=== PATIENT | female | born 1940 | race Caucasian/White ===

== ENCOUNTER 2021-10-15 18:16 | Observation (INO) | payer MEDICARE, OTHER, SELFPAY ==
[2021-10-15 18:32] VITALS: BP 181/95; PULSE 118; RESP 24; TEMP 37.1; O2SAT 98; BMI 27.4
--- NOTE | 2021-10-15 18:42 | DI.RAD.S_ITS ---
PROCEDURE: XR CHEST 2V INDICATIONS: shortness of breath TECHNIQUE: 2 views of the chest were acquired. COMPARISON: [facility] ([place]), CR, XR CHEST 2V, 10/15/2021, 13:40. FINDINGS: Surgical changes and devices: None. Lungs and pleura: Small left greater than right bilateral pleural effusion are again seen with bibasilar atelectasis. Underlying small infiltrates cannot be excluded. No gross pneumothorax. Mediastinum: Mediastinal contours are normal. Heart size is normal. Bones and chest wall: No suspicious bony abnormalities. Soft tissues appear unremarkable. IMPRESSION: Persistent small left greater than right bilateral pleural effusion and bibasilar atelectasis. No gross pneumothorax. Finding is not significantly changed from earlier study. Dictated by: Leonides Ulloa M.D. on 10/15/2021 at 19:01 Approved by: Leonides Ulloa M.D. on 10/15/2021 at 19:01
--- NOTE | 2021-10-15 19:17 | ED.SOB ---
HPI - SOB/Dyspnea General Chief Complaint: Shortness of Breath/Dyspnea Stated Complaint: states sent by MD lungs filing w/fluid Time Seen by Provider: 10/15/21 18:37 History of Present Illness HPI Narrative: 81-year-old female nonsmoker with history of chronic AFib on anticoagulation presents with her and the request of her primary care provider for further evaluation. She had noted that she had been wheezing for the past few days and become increasingly short of breath but was not improving with her inhalers and went to see her primary care provider. On their exam they noticed some increased work of breathing, elevated heart rate in the 140s, as well as a CXR that notes a R sided pleural effusion and she was sent here for further evaluation. She states she is chronically in atrial fibrillation and is unclear what her heart rate normally is. She denies any change in her medications, dosages or pharmacy. She denies missing any medications. She has no chest pain and denies any fever or chills. She has had no nausea or vomiting. Related Data Home Medications Medication Instructions Recorded Confirmed apixaban 5 mg tablet (Eliquis) 5 mg PO BID 10/13/21 10/15/21 hydrochlorothiazide 25 mg tablet 25 mg PO DAILY 10/13/21 10/15/21 metoprolol succinate 100 mg 100 mg PO DAILY 10/13/21 10/15/21 tablet,extended release 24 hr rosuvastatin 5 mg tablet 5 mg PO BID tab 10/15/21 10/15/21 Previous Rx's Medication Instructions Recorded albuterol sulfate 90 mcg/actuation See Rx Instructions INHALATION 10/13/21 aerosol inhaler Q4-6H PRN #8.5 g Allergies Allergy/AdvReac Type Severity Reaction Status Date / Time No Known Drug Allergies Allergy Verified 10/13/21 15:44 Review of Systems Review of Systems Narrative: GENERAL: Denies chills, fatigue, malaise, fever, sweats. HEENT: Denies sinus pain, ear pain, sore throat, difficulty swallowing, dizziness. RESPIRATORY: See HPI CARDIOVASCULAR: Denies chest pain, palpitations, orthopnea, edema, GASTROINTESTINAL: Denies nausea, vomiting, abdominal pain, diarrhea, constipation, melena. : Denies dysuria, frequency, incontinence, hematuria, urinary retention. MUSCULOSKELETAL: denies weakness, joint pain, or bony pain SKIN: Denies rash, skin lesions, or other NEUROLOGIC: Denies weakness, headache, numbness, change in speech, confusion, seizures, incoordination. PSYCHIATRIC: No concerning psychosocial issues. 12 point review of systems is negative except for those stated above Patient History Medical History Chronic atrial fibrillation Hypertension Pleural effusion Social History household members: spouse Smoking Status: Never smoker alcohol intake: current Smoking Status: Never smoker alcohol intake frequency: holidays/special occasions only Substance Use Type: does not use Exam Narrative Exam Narrative: GENERAL: [81 year old patient appears stated age. Well-developed patient, in mild distress. Minimal exertion results in obvious dyspnea and increased work of breathing, though she has not hypoxic at rest HEAD: Atraumatic. Normocephalic. EYES: Pupils equal round and reactive. Extraocular motions intact. No scleral icterus. No injection or drainage. ENT: Nose without bleeding, purulent drainage. Throat without erythema, tonsillar hypertrophy or exudate. Airway patent. NECK: Trachea midline. Non tender CARDIOVASCULAR: Tachycardic and irregular rhythm without murmurs, gallops, or rubs. RESPIRATORY: Increased work of breathing with minimal exertion, decreased breath sounds in left base with crackles in right base GASTROINTESTINAL: Abdomen soft, non-tender, nondistended. EXTREMITIES: No edema or joint tenderness. BACK: Nontender without deformity or crepitance. No flank tenderness. NEURO: AOx3. SKIN: No rash or erythema of visible areas Initial Vital Signs Initial Vital Signs: Vital Signs Temperature 98.7 F 10/15/21 18:32 Pulse Rate 118 H 10/15/21 18:32 Respiratory Rate 24 10/15/21 18:32 Blood Pressure 181/95 H 10/15/21 18:32 Pulse Oximetry 98 10/15/21 18:32 Course Orders Ordered: ED Orders 10/15/21 18:42 XR chest 2V Stat Measure peak expiratory flow ONCE RT Consult Eval and Treat Now 10/15/21 19:20 Complete Blood Count AUTO DIFF Stat Comprehensive Metabolic Panel Stat Lactate (Lactic Acid) Stat NT-proBNP (BNP-Adult 18+) Stat Prothrombin Time INR Stat 10/15/21 19:35 Respiratory Panel (Film Array) Stat 10/15/21 20:16 EKG-12 Lead Stat Acetaminophen (Acetaminophen 325 Mg Tablet) 650 mg PO Q6HR PRN PRN Reason: Fever/Mild Pain (1-3) Apixaban (Apixaban 5 Mg Tablet) 5 mg PO BID [facility] Last Admin: 10/15/21 22:33 Dose: 5 mg Documented by: HARLAN Atorvastatin Calcium (Atorvastatin 20 Mg Tablet) 10 mg PO BEDTIME [facility] Last Admin: 10/15/21 22:32 Dose: 10 mg Documented by: HARLAN Metoprolol Succinate (Metoprolol Er 50 Mg Tablet) 100 mg PO DAILY [facility] Naloxone HCl (Naloxone 0.4 Mg/Ml Vial) 0.2 mg IV Q2MIN PRN PRN Reason: Opiate Reversal Ondansetron HCl (Ondansetron 4 Mg/2 Ml Inj) 4 mg IV Q8HR PRN PRN Reason: Nausea And Vomiting Sodium Chloride (Sodium Chloride 0.9% Flush) 10 ml IV PRN PRN PRN Reason: Flush Sodium Chloride (Sodium Chloride 0.9% Flush) 10 ml IV BID [facility] Discontinued Medications Furosemide (Furosemide 40 Mg/4 Ml Vial) 40 mg IV NOW ONE Stop: 10/15/21 19:56 Last Admin: 10/15/21 20:41 Dose: 40 mg Documented by: DARRON Metoprolol Tartrate (Metoprolol Ir 25 Mg Tablet) 50 mg PO NOW ONE Stop: 10/15/21 19:47 Last Admin: 10/15/21 19:59 Dose: 50 mg Documented by: DARRON Vital Signs Vital signs: Vital Signs - 8 hr 10/15/21 18:32 Temperature 98.7 F Pulse Rate 118 H Respiratory Rate 24 Blood Pressure 181/95 H Pulse Oximetry 98 MDM - SOB/Dyspnea Lab Data Result diagrams: 10/15/21 19:20 10/15/21 19:20 Labs: Lab Results 10/15/21 10/15/21 10/15/21 Range/Units 19:20 19:20 19:20 WBC 8.1 (4.5-11.0) X10^3/uL RBC 3.56 L (4.0-5.2) X10^6/uL Hgb 12.0 (12.0-16.0) g/dL Hct 35.8 L (36-46) % MCV 100.7 H (80-100) fL MCH 33.7 (26-34) PG MCHC 33.5 (30-36) % RDW 14.4 (11.6-14.8) % Plt Count 222 (150-400) X10^3/uL Neut % (Auto) 84.5 H (50-75) % Lymph % (Auto) 6.5 L (25-40) % [place] % (Auto) 8.2 (3-14) % Eos % (Auto) 0.2 L (2-4) % Baso % (Auto) 0.6 (0-2) % Neut # (Auto) 6900 (5828-6253) /uL Lymph # (Auto) 500 L (8172-4954) /uL [place] # (Auto) 700 (0-900) /uL Eos # (Auto) 0 (0-450) /uL Baso # (Auto) 0 (0-100) /uL PT 19.0 H (10.1-12.7) SECONDS INR 1.7 H (0.9-1.3) Sodium 141 (137-145) mmol/L Potassium 3.7 (3.4-5.1) mmol/L Chloride 104 (98-107) mmol/L Carbon Dioxide 27 (22-32) mmol/L BUN 20 H (7-17) mg/dL Creatinine 1.01 (0.52-1.04) mg/dL Estimated GFR 52.3 L (>60) mL/min BUN/Creatinine Ratio 19.8 (6-22) Glucose 117 H (80-110) mg/dL Lactate (0.7-2.1) mmol/L Calcium 9.8 (8.4-10.2) mg/dL Total Bilirubin 1.8 H (0.2-1.3) mg/dL AST 30 (14-36) IU/L ALT 22 (<35) IU/L Alkaline Phosphatase 80 (38-126) U/L NT-Pro-B Natriuret Pep 2390 H (<450) pg/mL Total Protein 8.0 (6.3-8.2) g/dL Albumin 4.9 (3.5-5.0) g/dL Globulin 3.1 (1.7-4.1) g/dL Albumin/Globulin Ratio 1.6 (1.0-2.8) Procalcitonin (<0.5) ng/mL Chlamy pneumoniae PCR (Not Detect) Adenovirus (PCR) (Not Detect) B. pertussis DNA (PCR) (Not Detecte) B.parapertussis DNA PCR (Not Detecte) Coronavirus OC43 (PCR) (Not Detect) Coronavirus HKU1 (PCR) (Not Detect) Coronavirus 229E (PCR) (Not Detect) SARS-CoV-2 (PCR) (Not Detecte) Coronavirus NL63 (PCR) (Not Detect) Human Metapneumovir PCR (Not Detect) Influenza Type A (PCR) (Not Detect) Influenza Type B (PCR) (Not Detect) M. pneumoniae (PCR) (Not Detect) Parainfluenza 1 (PCR) (Not Detect) Parainfluenza 2 (PCR) (Not Detect) Parainfluenza 3 (PCR) (Not Detect) Parainfluenza 4 (PCR) (Not Detect) RSV (PCR) (Not Detect) Entero/Rhino (PCR) (Not Detect) 10/15/21 10/15/21 10/15/21 Range/Units 19:20 19:20 19:35 WBC (4.5-11.0) X10^3/uL RBC (4.0-5.2) X10^6/uL Hgb (12.0-16.0) g/dL Hct (36-46) % MCV (80-100) fL MCH (26-34) PG MCHC (30-36) % RDW (11.6-14.8) % Plt Count (150-400) X10^3/uL Neut % (Auto) (50-75) % Lymph % (Auto) (25-40) % [place] % (Auto) (3-14) % Eos % (Auto) (2-4) % Baso % (Auto) (0-2) % Neut # (Auto) (6933-7430) /uL Lymph # (Auto) (9615-2598) /uL [place] # (Auto) (0-900) /uL Eos # (Auto) (0-450) /uL Baso # (Auto) (0-100) /uL PT (10.1-12.7) SECONDS INR (0.9-1.3) Sodium (137-145) mmol/L Potassium (3.4-5.1) mmol/L Chloride (98-107) mmol/L Carbon Dioxide (22-32) mmol/L BUN (7-17) mg/dL Creatinine (0.52-1.04) mg/dL Estimated GFR (>60) mL/min BUN/Creatinine Ratio (6-22) Glucose (80-110) mg/dL Lactate 1.7 (0.7-2.1) mmol/L Calcium (8.4-10.2) mg/dL Total Bilirubin (0.2-1.3) mg/dL AST (14-36) IU/L ALT (<35) IU/L Alkaline Phosphatase (38-126) U/L NT-Pro-B Natriuret Pep (<450) pg/mL Total Protein (6.3-8.2) g/dL Albumin (3.5-5.0) g/dL Globulin (1.7-4.1) g/dL Albumin/Globulin Ratio (1.0-2.8) Procalcitonin 0.07 (<0.5) ng/mL Chlamy pneumoniae PCR Not detected (Not Detect) Adenovirus (PCR) Not detected (Not Detect) B. pertussis DNA (PCR) Not detected (Not Detecte) B.parapertussis DNA PCR Not detected (Not Detecte) Coronavirus OC43 (PCR) Not detected (Not Detect) Coronavirus HKU1 (PCR) Not detected (Not Detect) Coronavirus 229E (PCR) Not detected (Not Detect) SARS-CoV-2 (PCR) Not detected (Not Detecte) Coronavirus NL63 (PCR) Not detected (Not Detect) Human Metapneumovir PCR Not detected (Not Detect) Influenza Type A (PCR) Not detected (Not Detect) Influenza Type B (PCR) Not detected (Not Detect) M. pneumoniae (PCR) Not detected (Not Detect) Parainfluenza 1 (PCR) Not detected (Not Detect) Parainfluenza 2 (PCR) Not detected (Not Detect) Parainfluenza 3 (PCR) Not detected (Not Detect) Parainfluenza 4 (PCR) Not detected (Not Detect) RSV (PCR) Not detected (Not Detect) Entero/Rhino (PCR) Not detected (Not Detect) Imaging Data Chest x-ray: Radiologist's Impression: [address] [address] XRay Report Signed Patient: Lilia Wan MR#: [id number] : 1940 Acct:[id number] Age/Sex: 81 / F Date of Service: 10/15/21 Loc: ED Accession Number: [id number] ?? Procedure: XR chest 2V Ordering Provider: Shan Lopez D.O. PROCEDURE:? XR CHEST 2V ? INDICATIONS:? shortness of breath ? TECHNIQUE:? 2 views of the chest were acquired.? ? COMPARISON:? [facility] ([place]), CR, XR CHEST 2V, 10/15/2021, 13:40. ? FINDINGS:? ? Surgical changes and devices:? None.? ? Lungs and pleura:? Small left greater than right bilateral pleural effusion are again seen with bibasilar atelectasis.? Underlying small infiltrates cannot be excluded.? No gross pneumothorax. ? Mediastinum:? Mediastinal contours are normal.? Heart size is normal.? ? Bones and chest wall:? No suspicious bony abnormalities.? Soft tissues appear unremarkable.? ? IMPRESSION:? Persistent small left greater than right bilateral pleural effusion and bibasilar atelectasis.? No gross pneumothorax.? Finding is not significantly changed from earlier study. ? ? Dictated by: Leonides Ulloa M.D. on 10/15/2021 at 19:01 ? ? Approved by: Leonides Ulloa M.D. on 10/15/2021 at 19:01 ? [facility] Narrative Medical decision making narrative: Though patient is not hypoxemic she does become significantly short of breath with minimal exertion. She has a new pleural effusion and rapid atrial fibrillation along with evidence of acute CHF and elevated BNP. She will require hospitalization for stabilization of her atrial fibrillation, possible thoracentesis and diuresis. Discharge Plan Departure Patient Disposition: Admitted As Inpatient Clinical Impression: Atrial fibrillation with rapid ventricular response, Acute CHF, Pleural effusion on left Admit Date/Time: 10/15/21 20:28 Admit Provider: Gabby Ellis
[2021-10-15 19:30] LABS: Add Manual Diff / Slide Review NO; Basophils Absolute Auto 0 /uL (0-100); Basophils Percent Auto 0.6 % (0-2); Eosinophils Absolute Auto 0 /uL (0-450); Eosinophils Percent Auto 0.2 % (2-4); Hematocrit 35.8 % (36-46); Lymphocytes Absolute Auto 500 /uL (1100-4500); Lymphocytes Percent Auto 6.5 % (25-40); Mean Corpuscular HGB Conc 33.5 % (30-36); Mean Corpuscular Hemoglobin 33.7 PG (26-34); Mean Corpuscular Volume 100.7 fL (80-100); Monocytes Absolute Auto 700 /uL (0-900); Monocytes Percent Auto 8.2 % (3-14); Neutrophils Absolute Auto 6900 /uL (1500-7000); Neutrophils Percent Auto 84.5 % (50-75); Platelet Count 222 X10^3/uL (150-400); Red Blood Cell Count 3.56 X10^6/uL (4.0-5.2); Red Cell Distribution Width 14.4 % (11.6-14.8); White Blood Cell Count 8.1 X10^3/uL (4.5-11.0)
[2021-10-15 19:42] LABS: INR 1.7 (0.9-1.3)
[2021-10-15 19:47] LABS: Alanine Aminotransferase 22 IU/L (<35); Albumin 4.9 g/dL (3.5-5.0); Albumin Globulin Ratio 1.6 (1.0-2.8); Alkaline Phosphatase 80 U/L (38-126); Aspartate Aminotransferase 30 IU/L (14-36); BUN Creatinine Ratio 19.8 (6-22); Bilirubin Total 1.8 mg/dL (0.2-1.3); Blood Urea Nitrogen 20 mg/dL (7-17); Calcium 9.8 mg/dL (8.4-10.2); Carbon Dioxide 27 mmol/L (22-32); Chloride 104 mmol/L (98-107); Estimated Glomerular Filt Rate 52.3 mL/min (>60); Globulin 3.1 g/dL (1.7-4.1); Glucose 117 mg/dL (80-110); HEMOLYSIS < 15 (0-50); Potassium 3.7 mmol/L (3.4-5.1); Sodium 141 mmol/L (137-145)
[2021-10-15 19:48] LABS: Lactate (Lactic Acid) 1.7 mmol/L (0.7-2.1)
[2021-10-15 19:56] LABS: NT-proBNP (BNP-Adult 18+) 2390 pg/mL (<450)
[2021-10-15] MEDS: METOPROLOL IR 25 MG TABLET 50 MG PO (19:59)
[2021-10-15 20:34] LABS: Adenovirus Not Detected (Not Detect); B. parapertussis Not Detected (Not Detecte); Bordetella pertussis Not Detected (Not Detecte); Chlamydophila pneumoniae Not Detected (Not Detect); Coronavirus 229E Not Detected (Not Detect); Coronavirus HKU1 Not Detected (Not Detect); Coronavirus NL 63 Not Detected (Not Detect); Coronavirus OC43 Not Detected (Not Detect); Human Metapneumovirus Not Detected (Not Detect); Human Rhinovirus/Enterovirus Not Detected (Not Detect); Influenza A Not Detected (Not Detect); Influenza B Not Detected (Not Detect); Mycoplasma pneumoniae Not Detected (Not Detect); Parainfluenza Virus 1 Not Detected (Not Detect); Parainfluenza Virus 2 Not Detected (Not Detect); Parainfluenza Virus 3 Not Detected (Not Detect); Parainfluenza Virus 4 Not Detected (Not Detect); Respiratory Syncytial Virus Not Detected (Not Detect); SARS- CoV-2 Not Detected (Not Detecte)
[2021-10-15] MEDS: FUROSEMIDE 40 MG/4 ML VIAL IV (20:41)
[2021-10-15 20:55] VITALS: BP 178/110; PULSE 91; RESP 18; TEMP 36.4; O2SAT 99; BMI 27.4
--- NOTE | 2021-10-15 21:00 | PC.NURSE ---
pt was seen at clinic and told she had bilateral pleural effusions and to come to the ED, pt states she does not feel like she is SOB but with exertion pt is noted to be SOB with end expiratory audible wheezing. pt states they are trying to decide what is causing this as she has never been bothered with this problem before
[2021-10-15 22:00] VITALS: BP 165/87; PULSE 89; RESP 18; O2SAT 97
[2021-10-15] MEDS: ATORVASTATIN 20 MG TABLET 10 MG PO (22:32)
[2021-10-15] MEDS: APIXABAN 5 MG TABLET PO (22:33)
--- NOTE | 2021-10-15 23:12 | CM.MNRNOTE ---
Admitted to room 215 @ 2030, admission assessment done by Kristian Lowry RN. Patient instructed to call for assistance if she needed to get OOB to the BR. Noted audible ins. & exp. wheezing when she ambulated to the BR. Encouraged to just use the BSC, but wants to ambulate to the bathroom. Wheezing resolved when she's resting back to bed. Denies any dizziness & no C/O pain. Spouse rooming in at this time, but plan to go home tonight. Will cont. POC & monitor.
--- NOTE | 2021-10-15 23:18 | P.HP_ITS ---
History of Present Illness History of Present Illness Date Patient Seen: 10/15/21 Time Patient Seen: 22:30 Chief complaint: New onset CHF, sophia pleural effusions, a-fib RVR Narrative: Lilia Wan is an 81-year-old female with hypertension, hyperlipidemia, and hi story of asthma presented to her provider on [facility] with complaints of long-term shortness of breath and cough. They did an x-ray over there and she was noted to have bilateral pleural effusions, was recommended to present to the emergency department. She was noted to have labored breathing, she was also tachycardic in the ED and was noted to be wheezing by the ED provider. He noted that her heart rate was in the 120s to 140s. Chest x-ray was repeated and indicated the same findings. Patient is rather vague about her history stating that she has had asthma for many years and denies a history of smoking. Endorses a cough with occasional white colored sputum. Denies fever or chills, denies chest pain, n/v, abdominal pain, does have some urinary leakage she attributes to getting older, denies diarrhea or constipation. She is not vaccinated, and believes millions have from the COVID-19 vaccine. in the room seemed to be less emphatic. She was ordered for IV Lasix in the ED and administered immediate release metoprolol 50 mg. Chest Xray reports small pleural effusion, left greater than right. She is afebrile, blood pressure 147/81, heart rate 84, respiratory rate 16, oxygen saturation 98% on room air, she weighs 73.5 kg with a BMI of 27.4. CBC is unremarkable his mildly decreased EGFR of 52.3, glucose 117, total bilirubin is 1.8, proBNP was 2390, procalcitonin was within normal limits, viral PCR including COVID-19 was negative. Patient History Medical History (Updated 10/15/21 @ 21:34 by Shan Lopez DO) Chronic atrial fibrillation Hypertension Pleural effusion Family & Social History Family History (Updated 10/16/21 @ 02:08 by JIHAN Frank) Mother Pulmonary embolism Father Tobacco user COPD (chronic obstructive pulmonary disease) Social History: household members spouse Prior Living Arrangements House Safety & Behavioral: Feels Safe in Current Yes Environment Been Physically Hurt or No Threatened By a Person Suicidal Ideation Description None Suicide Plan Description No Plan Tobacco & Substance use: Smoking Status Never smoker alcohol intake current alcohol intake frequency holiday/special occasion Substance Use Type does not use Meds Home Medications and Allergies Home Medications Medication Instructions Recorded Confirmed Type albuterol sulfate 90 mcg/actuation See Rx Instructions INHALATION 10/13/2110/15 Rx aerosol inhaler Q4-6H PRN #8.5 g apixaban 5 mg tablet (Eliquis) 5 mg PO BID 10/13/21 10/15/21 History hydrochlorothiazide 25 mg tablet 25 mg PO DAILY 10/13/21 10/15/21 History metoprolol succinate 100 mg 100 mg PO DAILY 10/13/21 10/15/21 History tablet,extended release 24 hr rosuvastatin 5 mg tablet 5 mg PO BID tab 10/15/21 10/15/21 History Allergies Allergy/AdvReac Type Severity Reaction Status Date / Time No Known Drug Allergies Allergy Verified 10/13/21 15:44 Review of Systems Review of Systems ROS: Yes All systems reviewed with the patient and are negative except as otherwise documented Exam Vital Signs (past 8 hours): - 10/15/21 18:32 10/15/21 20:55 Temperature 98.7 F 97.5 F L Pulse Rate 118 H 91 H Respiratory Rate 24 18 Blood Pressure 181/95 H 178/110 H Pulse Oximetry 98 99 Oxygen Delivery Method Room Air Oxygen Flow Rate 0 Narrative Exam Narrative: Gen: Alert, oriented, well-developed 81 y.o. female, odd affect HEENT: normocephalic, atraumatic, conjunctiva clear, sclera non-icteric, oral mucosa pink and moist Neck: supple, full ROM, no JVD, trachea is midline Resp: Lungs CTA no wheezing, non-labored breathing CV: RRR, no murmur or rubs Abd: soft, non-tender, normoactive BTs Skin: no lesions or rashes, dry and intact Neuro: Alert and oriented X 4 w/no focal deficits. Speech clear and coherent. Extremities: moves all 4 extremities, is ambulatory, negative Venkat?s sign Psyche: normal mood and affect. Objective Labs Result Diagrams: 10/15/21 19:20 10/15/21 19:20 Labs: Laboratory Results - last 24 hr 10/15/21 10/15/21 10/15/21 19:20 19:20 19:20 WBC 8.1 RBC 3.56 L Hgb 12.0 Hct 35.8 L MCV 100.7 H MCH 33.7 MCHC 33.5 RDW 14.4 Plt Count 222 Neut % (Auto) 84.5 H Lymph % (Auto) 6.5 L [place] % (Auto) 8.2 Eos % (Auto) 0.2 L Baso % (Auto) 0.6 Neut # (Auto) 6900 Lymph # (Auto) 500 L [place] # (Auto) 700 Eos # (Auto) 0 Baso # (Auto) 0 PT 19.0 H INR 1.7 H Sodium 141 Potassium 3.7 Chloride 104 Carbon Dioxide 27 BUN 20 H Creatinine 1.01 Estimated GFR 52.3 L BUN/Creatinine Ratio 19.8 Glucose 117 H Lactate Calcium 9.8 Total Bilirubin 1.8 H AST 30 ALT 22 Alkaline Phosphatase 80 NT-Pro-B Natriuret Pep 2390 H Total Protein 8.0 Albumin 4.9 Globulin 3.1 Albumin/Globulin Ratio 1.6 Chlamy pneumoniae PCR Adenovirus (PCR) B. pertussis DNA (PCR) B.parapertussis DNA PCR Coronavirus OC43 (PCR) Coronavirus HKU1 (PCR) Coronavirus 229E (PCR) SARS-CoV-2 (PCR) Coronavirus NL63 (PCR) Human Metapneumovir PCR Influenza Type A (PCR) Influenza Type B (PCR) M. pneumoniae (PCR) Parainfluenza 1 (PCR) Parainfluenza 2 (PCR) Parainfluenza 3 (PCR) Parainfluenza 4 (PCR) RSV (PCR) Entero/Rhino (PCR) 10/15/21 10/15/21 19:20 19:35 WBC RBC Hgb Hct MCV MCH MCHC RDW Plt Count Neut % (Auto) Lymph % (Auto) [place] % (Auto) Eos % (Auto) Baso % (Auto) Neut # (Auto) Lymph # (Auto) [place] # (Auto) Eos # (Auto) Baso # (Auto) PT INR Sodium Potassium Chloride Carbon Dioxide BUN Creatinine Estimated GFR BUN/Creatinine Ratio Glucose Lactate 1.7 Calcium Total Bilirubin AST ALT Alkaline Phosphatase NT-Pro-B Natriuret Pep Total Protein Albumin Globulin Albumin/Globulin Ratio Chlamy pneumoniae PCR Not detected Adenovirus (PCR) Not detected B. pertussis DNA (PCR) Not detected B.parapertussis DNA PCR Not detected Coronavirus OC43 (PCR) Not detected Coronavirus HKU1 (PCR) Not detected Coronavirus 229E (PCR) Not detected SARS-CoV-2 (PCR) Not detected Coronavirus NL63 (PCR) Not detected Human Metapneumovir PCR Not detected Influenza Type A (PCR) Not detected Influenza Type B (PCR) Not detected M. pneumoniae (PCR) Not detected Parainfluenza 1 (PCR) Not detected Parainfluenza 2 (PCR) Not detected Parainfluenza 3 (PCR) Not detected Parainfluenza 4 (PCR) Not detected RSV (PCR) Not detected Entero/Rhino (PCR) Not detected Assessment & Plan Assessment & Plan narrative: Lilia Wan is placed into observation for further evaluation of bilateral effusions, management of tachycardia which has since resolved, and further workup of a suspected new onset CHF exacerbation. 1. Bilateral pleural effusions left worse than right, acute, present on admission * She is ordered for a ultrasound-guided thoracentesis * Will need to check with Radiology to see if morning dose of apixaban needs to be held 2. AFib with RVR, acute, present on admission * She was given 1 dose of p.o. metoprolol 50 mg in the ED and her rate has been normal since she has come to the floor * She will resume metoprolol extended release 100 mg in the morning * She will need to resume apixaban 5 mg b.i.d. 3. New onset CHF exacerbation, acute, present on admission * I suspect this is actually longstanding, we just do not have her current records * Echocardiogram in the morning 4. Hyperlipidemia * She takes rosuvastatin 5 mg twice daily, I have rescheduled this to 10 mg at bedtime VTE Prophylaxis: Wells risk score 4.5 [X] Bilateral SCDs X Patient is currently anticoagulated on apixaban. Patient is placed into observation as her stay is not expected to exceed 2 midnights. FEN: IV fluids: saline lock, diet: cardiac diet w/2 gram sodium, labs: CBC, C/BMP, liver enzymes, Mag Mobile Marketing Specialist None Dispo: probable discharge to home Code status: full code as discussed with the patient who identifies her , Sig as her surrogate and POA. [X] I have utilized all available immediate resources to obtain, update, or review of the patient's current medications noxaparin 40 mg subQ once daily [] Bilateral SCDs [] Patient is currently anticoagulated on []. []Patient is placed into observation as [] stay is not expected to exceed 2 midnights. []Patient is admitted to the inpatient service due to the severity of disease, risks of further disease progression and this stay is expected to exceed 2 midnights. FEN: IV fluids: [], diet: [], labs: CBC, C/BMP, liver enzymes, Mag, PT/INR Consultants [] None [] care and involvement in the patient?s care is appreciated. Dispo: [] Code status: [] as discussed with the patient who identifies [] as [] his [] her surrogate and POA. [X] I have utilized all available immediate resources to obtain, update, or review of the patient's current medications COVID-19 COVID-19 status: Negative Result date/Date tested (Pos, Neg/Pending): 10/15/21 Time Spent With Patient Critical Care time: I spent a total of [] minutes of critical care time on this patient's care today; this time is exclusive of procedural time. Scores Wells' Criteria for PE Clinical signs and symptoms of DVT: Yes PE is #1 Dx or equally likely: No Heart rate > 100: Yes Immobilization at least 3 days or surg in previous 4 weeks: No History of PE or DVT: No Hemoptysis: No Malignancy w/Treatment within 6 months or palliative: No Wells' PE Score total: 4.5 Quality VTE Deep Vein Thrombosis/Pulmonary Embolism Present on Admission: No MIPS - Admit I confirm the patient?s Advance Care Plan is present, Code status is documented, Surrogate decision maker is in patient?s record [If Yes, STOP here]: Yes MIPS - DC The patient has current or prior documentation of left ventricular ejection fraction (LVEF) less than 40%, or moderate or severely depressed left ventricular systolic function.: No
[2021-10-15 23:20] VITALS: BP 147/81; PULSE 84; RESP 16; TEMP 36.6; O2SAT 98
[2021-10-15 23:27] LABS: Procalcitonin 0.07 ng/mL (<0.5)
[2021-10-16] VITALS (13 sets, daily range): BP systolic 127–159; BP diastolic 67–98; PULSE 64–95; RESP 14–18; TEMP 36.3–37.2; O2SAT 92–99
[2021-10-16 06:01] LABS: Add Manual Diff / Slide Review NO; Basophils Absolute Auto 0 /uL (0-100); Basophils Percent Auto 0.5 % (0-2); Eosinophils Absolute Auto 100 /uL (0-450); Eosinophils Percent Auto 0.9 % (2-4); Hematocrit 37.5 % (36-46); Hemoglobin 12.7 g/dL (12.0-16.0); Lymphocytes Absolute Auto 900 /uL (1100-4500); Lymphocytes Percent Auto 12.5 % (25-40); Mean Corpuscular HGB Conc 33.8 % (30-36); Mean Corpuscular Volume 100.7 fL (80-100); Monocytes Absolute Auto 700 /uL (0-900); Neutrophils Absolute Auto 5200 /uL (1500-7000); Neutrophils Percent Auto 76.1 % (50-75); Platelet Count 219 X10^3/uL (150-400); Red Blood Cell Count 3.73 X10^6/uL (4.0-5.2); Red Cell Distribution Width 14.7 % (11.6-14.8); White Blood Cell Count 6.9 X10^3/uL (4.5-11.0)
[2021-10-16 06:08] LABS: Alanine Aminotransferase 22 IU/L (<35); Albumin 4.8 g/dL (3.5-5.0); Albumin Globulin Ratio 1.5 (1.0-2.8); Alkaline Phosphatase 81 U/L (38-126); Aspartate Aminotransferase 30 IU/L (14-36); BUN Creatinine Ratio 20.4 (6-22); Bilirubin Total 2.2 mg/dL (0.2-1.3); Bilirubin Unconjugated 2.2 mg/dL (0.0-1.1); Blood Urea Nitrogen 21 mg/dL (7-17); Calcium 10.1 mg/dL (8.4-10.2); Carbon Dioxide 29 mmol/L (22-32); Chloride 101 mmol/L (98-107); Estimated Glomerular Filt Rate 51.2 mL/min (>60); Globulin 3.2 g/dL (1.7-4.1); Glucose 106 mg/dL (80-110); HEMOLYSIS < 15 (0-50); Potassium 3.5 mmol/L (3.4-5.1); Sodium 142 mmol/L (137-145)
[2021-10-16] MEDS: ALBUTEROL 2.5 MG/3 ML NEB (ADULT) INH ×2 (08:01→13:30)
[2021-10-16] MEDS: METOPROLOL ER 50 MG TABLET 100 MG PO (09:13)
[2021-10-16] MEDS: SODIUM CHLORIDE 0.9% FLUSH 10 ML IV ×2 (09:13→22:36)
[2021-10-16] MEDS: APIXABAN 5 MG TABLET PO ×2 (09:13→21:11)
--- NOTE | 2021-10-16 10:00 | DI.ECHO.S_ITS ---
[facility]---------+ [facility] +---------+ : : [address] : [address] : : : : [id number] : : : : Phone: [phone]+ Echocardiogram Report + + :Name: JENN LOPEZ Study Date: 10/16/2021 Height: 64 in : :[facility] ReadingLocation: Weight: 162 lb : : Gender: Female BSA: 1.8 m2 : :: 1940 Age: 81 yrs BP: 178/110 mmHg: :Reason For Study: New onset CHF : :Ordering Physician: MEET, : :MITA Performed By: Kuldip Levy : :Referring: MITA DSOUZA : + + Interpretation Summary Afib with variable rate (78-94 bpm). Normal LV size and wall thickness. Normal wall motion and LV systolic function. EF is 50-60%. Mild LA enlargement and mild RV enlargement. No significant valvular abnormalities. Estimated PA systolic pressure is 56 mm Hg assuming RA pressure of 10 mm Hg No prior study available for comparison. Procedure: A two-dimensional transthoracic echocardiogram with color flow and Doppler was performed in limited views only to assess LVEF. The study quality was technically adequate. The apical views were difficult to obtain and are suboptimal in quality. There is no prior echocardiogram noted for this patient. The patient was in atrial fibrillation with heart rates between 78 - 94 bpm during the exam. Left Ventricle: The left ventricle is normal in size and wall thickness. Left ventricular ejection fraction is estimated to be 55 +/- 5%. Significant beat - to beat variation on EF. Diastolic function could not be accurately assessed due to atrial fibrillation. Right Ventricle: The right ventricle is mildly dilated. Right ventricular systolic function is borderline reduced. Atria: The left atrium is mildly dilated. Mitral Valve: There is mild to moderate mitral regurgitation. Aortic Valve: The aortic valve is trileaflet. The aortic valve opens well. There is trace aortic regurgitation. Tricuspid Valve: There is mild to moderate tricuspid regurgitation. The right ventricular systolic pressure is estimated to be at least 46 mmHg based on an estimated right atrial pressure of 3 mm Hg. Great Vessels: IVC is not visualized. Pericardium/ Pleura There is no pericardial effusion. There is an anterior echo-free space consistent with a fat pad. MMode/2D Measurements & Calculations LVIDd: 4.6 cm LA A2 area: 19.6 cm2 LVIDs: 3.7 cm LA A4 area: 24.8 cm2 FS: 19.0 % LA length (vol): 6.2 cm IVSd: 0.97 cm LA vol: 66.7 ml LVPWd: 1.1 cm LA vol index: 37.3 ml/m2 LV floyd. diameter/BSA (cm/m^2): 2.6 LV sys. diameter/BSA (cm/m^2): 2.1 RA long axis: 5.3 cm RVD1 (basal): 3.3 cm RA area: 16.9 cm2 TAPSE: 1.6 cm RA vol: 46.3 ml RA : 25.9 ml/m2 Doppler Measurements & Calculations MV E max renetta: 122.9 cm/sec TR max renetta: 327.9 cm/sec MV dec time: 0.15 sec TR max P.1 mmHg Electronically signed by: Laure Lopez M.D. on Reading Physician:10/16/2021 06:23 PM
[2021-10-16] MEDS: POTASSIUM CHLORIDE 20 MEQ TAB PO (11:23)
--- NOTE | 2021-10-16 13:19 | CM.IDA ---
Initial DCP Assessment Note Pt is an 81 yo female, resident of [facility], arrives with assisted shortness of breath and cough admitted obs for evaluation of bilateral effusions, management of tachycardia which has since resolved, and further workup of a suspected new onset CHF exacerbation Patient is unvaccinated against the COVID 19 virus. PCP: Salma Live Payer: [place] A Reviewed chart, met w/patient and her spouse this morning to introduce role. Patient and spouse live on [address], next door to patient's Nephew. Patient is active and indp at baseline and eager to return home when medically cleared. Patient awaiting her echo when I arrived and echo presented as assessment was completed. 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 Yes Advance Directives on File No History Provided By Patient,Significant Other Prior Living Arrangements House Household Members spouse Comment has not been driving d/t medical complications recently Independent with ADL's Yes Is patient alert and oriented? Yes Barriers to Discharge No Comment Patient eager to return home today if cleared Discharge Plan Home Transportation Arrangement Spouse Referrals Initiated None needed
--- NOTE | 2021-10-16 17:39 | P.PN_ITS ---
Subjective Subjective Date Patient Seen: 10/16/21 Interval history: The patient is an 81-year-old female with a history of chronic atrial fibrillation admitted to the hospital for shortness of breath. The patient is currently being treated for heart failure. She does report bilateral lower extremity edema for quite some time. She states her breathing has significantly improved. Exam Vital Signs (past 8 hours): - 10/16/21 11:28 10/16/21 11:30 10/16/21 13:30 Temperature 98.6 F Pulse Rate 87 87 64 Respiratory Rate 18 14 Blood Pressure 130/79 130/79 Pulse Oximetry 99 98 10/16/21 15:00 Temperature Pulse Rate 92 H Respiratory Rate 18 Blood Pressure 127/67 Pulse Oximetry 97 Oxygen Delivery Method Room Air Oxygen Flow Rate 0 Narrative Exam Narrative: Pleasant female sitting in a chair in no acute distress Resp Other: Lungs: Clear to auscultation Cardio Other: Cardiac exam: Irregularly irregular normal S1-S2 with a 2/6 systolic ejection murmur GI Other: Abdomen soft nontender nondistended Extrem Other: Extremity 2+ bilateral edema Objective Labs Result Diagrams: 10/16/21 05:22 10/16/21 05:22 Labs: Laboratory Results - last 24 hr 10/15/21 10/15/21 10/15/21 19:20 19:20 19:20 WBC 8.1 RBC 3.56 L Hgb 12.0 Hct 35.8 L MCV 100.7 H MCH 33.7 MCHC 33.5 RDW 14.4 Plt Count 222 Neut % (Auto) 84.5 H Lymph % (Auto) 6.5 L Greenlee % (Auto) 8.2 Eos % (Auto) 0.2 L Baso % (Auto) 0.6 Neut # (Auto) 6900 Lymph # (Auto) 500 L Greenlee # (Auto) 700 Eos # (Auto) 0 Baso # (Auto) 0 PT 19.0 H INR 1.7 H Sodium 141 Potassium 3.7 Chloride 104 Carbon Dioxide 27 BUN 20 H Creatinine 1.01 Estimated GFR 52.3 L BUN/Creatinine Ratio 19.8 Glucose 117 H Lactate Calcium 9.8 Magnesium Total Bilirubin 1.8 H Conjugated Bilirubin Unconjugated Bilirubin AST 30 ALT 22 Alkaline Phosphatase 80 NT-Pro-B Natriuret Pep 2390 H Total Protein 8.0 Albumin 4.9 Globulin 3.1 Albumin/Globulin Ratio 1.6 Procalcitonin Chlamy pneumoniae PCR Adenovirus (PCR) B. pertussis DNA (PCR) B.parapertussis DNA PCR Coronavirus OC43 (PCR) Coronavirus HKU1 (PCR) Coronavirus 229E (PCR) SARS-CoV-2 (PCR) Coronavirus NL63 (PCR) Human Metapneumovir PCR Influenza Type A (PCR) Influenza Type B (PCR) M. pneumoniae (PCR) Parainfluenza 1 (PCR) Parainfluenza 2 (PCR) Parainfluenza 3 (PCR) Parainfluenza 4 (PCR) RSV (PCR) Entero/Rhino (PCR) 10/15/21 10/15/21 10/15/21 19:20 19:20 19:35 WBC RBC Hgb Hct MCV MCH MCHC RDW Plt Count Neut % (Auto) Lymph % (Auto) Greenlee % (Auto) Eos % (Auto) Baso % (Auto) Neut # (Auto) Lymph # (Auto) Greenlee # (Auto) Eos # (Auto) Baso # (Auto) PT INR Sodium Potassium Chloride Carbon Dioxide BUN Creatinine Estimated GFR BUN/Creatinine Ratio Glucose Lactate 1.7 Calcium Magnesium Total Bilirubin Conjugated Bilirubin Unconjugated Bilirubin AST ALT Alkaline Phosphatase NT-Pro-B Natriuret Pep Total Protein Albumin Globulin Albumin/Globulin Ratio Procalcitonin 0.07 Chlamy pneumoniae PCR Not detected Adenovirus (PCR) Not detected B. pertussis DNA (PCR) Not detected B.parapertussis DNA PCR Not detected Coronavirus OC43 (PCR) Not detected Coronavirus HKU1 (PCR) Not detected Coronavirus 229E (PCR) Not detected SARS-CoV-2 (PCR) Not detected Coronavirus NL63 (PCR) Not detected Human Metapneumovir PCR Not detected Influenza Type A (PCR) Not detected Influenza Type B (PCR) Not detected M. pneumoniae (PCR) Not detected Parainfluenza 1 (PCR) Not detected Parainfluenza 2 (PCR) Not detected Parainfluenza 3 (PCR) Not detected Parainfluenza 4 (PCR) Not detected RSV (PCR) Not detected Entero/Rhino (PCR) Not detected 10/16/21 10/16/21 05:22 05:22 WBC 6.9 RBC 3.73 L Hgb 12.7 Hct 37.5 MCV 100.7 H MCH 34.0 MCHC 33.8 RDW 14.7 Plt Count 219 Neut % (Auto) 76.1 H Lymph % (Auto) 12.5 L Greenlee % (Auto) 10.0 Eos % (Auto) 0.9 L Baso % (Auto) 0.5 Neut # (Auto) 5200 Lymph # (Auto) 900 L Greenlee # (Auto) 700 Eos # (Auto) 100 Baso # (Auto) 0 PT INR Sodium 142 Potassium 3.5 Chloride 101 Carbon Dioxide 29 BUN 21 H Creatinine 1.03 Estimated GFR 51.2 L BUN/Creatinine Ratio 20.4 Glucose 106 Lactate Calcium 10.1 Magnesium 2.0 Total Bilirubin 2.2 H Conjugated Bilirubin 0.0 Unconjugated Bilirubin 2.2 H AST 30 ALT 22 Alkaline Phosphatase 81 NT-Pro-B Natriuret Pep Total Protein 8.0 Albumin 4.8 Globulin 3.2 Albumin/Globulin Ratio 1.5 Procalcitonin Chlamy pneumoniae PCR Adenovirus (PCR) B. pertussis DNA (PCR) B.parapertussis DNA PCR Coronavirus OC43 (PCR) Coronavirus HKU1 (PCR) Coronavirus 229E (PCR) SARS-CoV-2 (PCR) Coronavirus NL63 (PCR) Human Metapneumovir PCR Influenza Type A (PCR) Influenza Type B (PCR) M. pneumoniae (PCR) Parainfluenza 1 (PCR) Parainfluenza 2 (PCR) Parainfluenza 3 (PCR) Parainfluenza 4 (PCR) RSV (PCR) Entero/Rhino (PCR) [facility] Medical History Chronic atrial fibrillation Hypertension Pleural effusion Family History (Updated 10/16/21 @ 02:08 by JIHAN Frank) Mother Pulmonary embolism Father Tobacco user COPD (chronic obstructive pulmonary disease) Social History household members: spouse Smoking Status: Never smoker alcohol intake: current Assessment & Plan Assessment & Plan narrative: AFib with RVR, acute, present on admission * She was given 1 dose of p.o. metoprolol 50 mg in the ED and her rate has been normal since she has come to the floor * She will resume metoprolol extended release 100 mg in the morning * She will need to resume apixaban 5 mg b.i.d. 3. New onset CHF exacerbation, acute, present on admission * I suspect this is actually longstanding, we just do not have her current records * Echocardiogram in the morning, echo pending * Continue diuresis, may require Lasix at discharge 4. Hyperlipidemia * She takes rosuvastatin 5 mg twice daily, I have rescheduled this to 10 mg at bedtime * * Anticipate discharge home tomorrow Time Spent With Patient Critical Care time: I spent a total of [] minutes of critical care time on this patient's care today; this time is exclusive of procedural time. Quality VTE Deep Vein Thrombosis/Pulmonary Embolism Present on Admission: No
[2021-10-16] MEDS: ATORVASTATIN 20 MG TABLET 10 MG PO (21:12)
--- NOTE | 2021-10-16 21:21 | DI.CT.S_ITS ---
PROCEDURE: CT STROKE INDICATIONS: sudden mental status change TECHNIQUE: Noncontrast 4.5 mm thick angled axial sections acquired from the foramen magnum to the vertex, with coronal reformats. For radiation dose reduction, the following was used: automated exposure control, adjustment of mA and/or kV according to patient size. COMPARISON: None. FINDINGS: Image quality: Excellent. CSF spaces: Basal cisterns are patent. No extra-axial fluid collections. The ventricles are symmetric in size and shape. Brain: No intracranial bleeds or masses. There is a 1.7 cm oval hypodensity in the inferolateral margin of the right basal ganglia likely representing sequela of remote lacunar infarct. There is cerebral volume loss for age, with resultant ventricular and sulcal prominence. There are periventricular and deep white matter chronic small vessel ischemic changes. There is intracranial internal carotid artery atherosclerosis. Skull and face: Calvarium and visualized facial bones appear intact, without suspicious lesions. Sinuses: Visualized sinuses and mastoids are clear. IMPRESSION: CT head without acute intracranial abnormalities. If there is persistent or high clinical suspicion for acute cerebrovascular ischemia/stroke, more sensitive evaluation with brain MRI can be considered. Discussed with Dr. Lopez at 2245 hrs. This study fulfills neurological imaging criteria for inclusion or exclusion of acute stroke therapies based on available published neurological guidelines. Dictated by: Magdaleno Ayala M.D. on 10/16/2021 at 22:41 Approved by: Magdaleno Ayala M.D. on 10/16/2021 at 22:46
[2021-10-16 22:15] LABS: Add Manual Diff / Slide Review NO; Basophils Absolute Auto 200 /uL (0-100); Basophils Percent Auto 2.2 % (0-2); Eosinophils Absolute Auto 100 /uL (0-450); Eosinophils Percent Auto 1.4 % (2-4); Hemoglobin 12.1 g/dL (12.0-16.0); Lymphocytes Absolute Auto 800 /uL (1100-4500); Mean Corpuscular HGB Conc 32.8 % (30-36); Mean Corpuscular Hemoglobin 33.3 PG (26-34); Mean Corpuscular Volume 101.6 fL (80-100); Monocytes Absolute Auto 900 /uL (0-900); Monocytes Percent Auto 10.2 % (3-14); Neutrophils Absolute Auto 6700 /uL (1500-7000); Neutrophils Percent Auto 77.2 % (50-75); Platelet Count 209 X10^3/uL (150-400); Red Blood Cell Count 3.64 X10^6/uL (4.0-5.2); Red Cell Distribution Width 14.4 % (11.6-14.8); White Blood Cell Count 8.6 X10^3/uL (4.5-11.0)
[2021-10-16 22:24] LABS: BUN Creatinine Ratio 26.7 (6-22); Blood Urea Nitrogen 32 mg/dL (7-17); Carbon Dioxide 32 mmol/L (22-32); Chloride 102 mmol/L (98-107); Estimated Glomerular Filt Rate 42.9 mL/min (>60); Glucose 113 mg/dL (80-110); HEMOLYSIS 17 (0-50); Potassium 3.8 mmol/L (3.4-5.1); Sodium 141 mmol/L (137-145)
[2021-10-16 22:36] LABS: Troponin I < 0.012 ng/mL (0.01-0.034)
--- NOTE | 2021-10-16 22:36 | PC.NURSE ---
Went to pt. room to do my assessment @ 2049 & to administered here 2100 meds. But she was very difficult to arouse. Not even opening her eyes, but she was moaning when we did some sternal rub. JIHAN Ellis & coordinator Madelin WILSON notified, see all the orders. After coming back from the CT scan, pt. was awake I asked her where she's at this time she said I don't know. Refusing the telemetry & ECG now. Spouse Sig called & he's staying with the patient now. Rechecked her VS B/P 159/85 & HR 94 RR 16 & SPO2 in RA 92%.
--- NOTE | 2021-10-16 22:58 | PC.NURSE ---
2250 Pt. requested to get up to the BR & ambulated & declined to lay down in bed. Sitting in the recliner @ this time accompanied by her spouse. Will monitor.
--- NOTE | 2021-10-17 00:51 | PC.NURSE ---
DELIVERY TECH note: at 2200 attempted to put telemetry on. Patient refused. Took patient to CT scan. Attempted to have patient lay down in bed for an EKG shortly after, refused bed. Sat in chair. Refused telemetry again. Put telemetry on at approx. 0015.
--- NOTE | 2021-10-17 01:34 | PC.NURSE ---
Spouse & patient requested not to activate her bed alarm. Instructed to call before getting OOB to the BR. Will monitor.
[2021-10-17] MEDS: ALBUTEROL 2.5 MG/3 ML NEB (ADULT) INH (07:29)
[2021-10-17 07:30] VITALS: PULSE 102; RESP 20; O2SAT 99
[2021-10-17 08:15] VITALS: BP 133/88; PULSE 100; RESP 15; TEMP 36.3; O2SAT 94
[2021-10-17 10:33] VITALS: BP 133/83
[2021-10-17] MEDS: APIXABAN 5 MG TABLET PO (10:33)
[2021-10-17] MEDS: METOPROLOL ER 50 MG TABLET 100 MG PO (10:33)
[2021-10-17] MEDS: SODIUM CHLORIDE 0.9% FLUSH 10 ML IV (10:34)
--- NOTE | 2021-10-17 13:04 | CM.DPNOTE ---
DC Note According to Dr Oshea, patient will be DC home w/spouse today ([facility]), no addtl. needs from this CORPORATE REPRESENTATIVE JW
--- NOTE | 2021-10-18 07:48 | PM.DS.1 ---
History of Present Illness History of Present Illness Date Patient Seen: 10/17/21 Chief complaint: New onset CHF, sophia pleural effusions, a-fib RVR Narrative: Lilia Wan is an 81-year-old female with hypertension, hyperlipidemia, and history of asthma presented to her provider on [facility] with complaints of long-term shortness of breath and cough.? They did an x-ray over there and she was noted to have bilateral pleural effusions, was recommended to present to the emergency department.? She was noted to have labored breathing, she was also tachycardic in the ED and was noted to be wheezing by the ED provider.? He noted that her heart rate was in the 120s to 140s.? Chest x-ray was repeated and indicated the same findings.? Patient is rather vague about her history stating that she has had asthma for many years and denies a history of smoking. Endorses a cough with occasional white colored sputum. Denies fever or chills, denies chest pain, n/v, abdominal pain, does have some urinary leakage she attributes to getting older, denies diarrhea or constipation. She is not vaccinated, and believes millions have from the COVID-19 vaccine. in the room seemed to be less emphatic. She was ordered for IV Lasix in the ED and administered immediate release metoprolol 50 mg.? Chest Xray reports small pleural effusion, left greater than right.? She is afebrile, blood pressure 147/81, heart rate 84, respiratory rate 16, oxygen saturation 98% on room air, she weighs 73.5 kg with a BMI of 27.4.? CBC is unremarkable his mildly decreased EGFR of 52.3, glucose 117, total bilirubin is 1.8, proBNP was 2390, procalcitonin was within normal limits, viral PCR including COVID-19 was negative. Discharge Providers Provider Date of admission: 10/15/21 20:28 Discharge Date: 10/17/21 Primary care physician: Salma Live PA-C Discharge provider: Tammie Oshea MD Summary Hospital Course Discharge Diagnosis: 2. Acute heart failure with preserved systolic function, and fraction 50-60% 3. Chronic atrial fibrillation 4. Hypertension 5. Hyperlipidemia 6. Asthma Hospital Course: Patient was admitted to the hospital for treatment of shortness of breath. She was found to have acute heart failure with preserved ejection fraction. Patient was diuresed and had significant improvement in her breathing. Her heart rate was well controlled. Blood pressure was mildly elevated. Patient underwent cardiac echo which confirmed an ejection fraction of 50-60%. He made significant improvement and was deemed appropriate for discharge home. Patient does have a hydrogen operator home she will follow up with as an outpatient, Dr. Sotelo at [facility]. As she was felt to be at her dry weight she was not discharged home on diuretics but will discuss this with her hydrogen operator at her upcoming visit. Patient was continued on her prior home medications. Status at Discharge Cognitive/behavioral status at discharge: oriented Functional status at discharge: independent ambulation Overall status at discharge: patient is not back to baseline Exam Vital Signs (past 8 hours): Oxygen Delivery Method Room Air Oxygen Flow Rate 0 Narrative Exam Narrative: Pleasant female in no acute distress Resp Other: Lungs: Clear to auscultation Cardio Other: Irregularly irregular normal S1-S2 GI Other: Abdomen soft nontender nondistended Extrem Other: 1+ edema bilaterally Objective Labs Result Diagrams: 10/16/21 22:00 10/16/21 22:00 Labs: Laboratory Results - last 24 hr 10/17/21 11:05 Sodium Cancelled Potassium Cancelled Chloride Cancelled Carbon Dioxide Cancelled BUN Cancelled Creatinine Cancelled Estimated GFR Cancelled BUN/Creatinine Ratio Cancelled Glucose Cancelled Calcium Cancelled NT-Pro-B Natriuret Pep Cancelled PFSH Medical History Chronic atrial fibrillation Hypertension Pleural effusion Family History (Updated 10/16/21 @ 02:08 by JIHAN Frank) Mother Pulmonary embolism Father Tobacco user COPD (chronic obstructive pulmonary disease) Social History household members: spouse Smoking Status: Never smoker alcohol intake: current Discharge Assessment & Plan Assessment and Plan Assessment: Acute heart failure with preserved systolic function, and fraction 50-60% 3. Chronic atrial fibrillation 4. Hypertension 5. Hyperlipidemia 6. Asthma Plan of Treatment: Medications as prescribed Follow-up with Cardiology in 1-2 weeks Discharge Plan Discharge Plan Patient Disposition: Home Discharge orders & Medications Prescriptions: Continued metoprolol succinate 100 mg tablet extended release 24 hr 100 mg PO DAILY 0RF hydrochlorothiazide 25 mg tablet 25 mg PO DAILY 0RF Eliquis 5 mg tablet 5 mg PO BID 0RF albuterol sulfate 90 mcg/actuation HFA aerosol inhaler See Rx Instructions inhalation Q4-6H PRN (Reason: shortness of breath or wheezing) Qty: 8.5 0RF Rx Instructions: one to two puffs inhalation every 4-6 hours PRN; rosuvastatin 5 mg tablet 5 mg PO BID 0RF Follow up/Referrals: Salma Live PA-C [Primary Care Provider] - Discharge Health Status Multidrug resistant organism: No MDRO Diet/Activity/Treatments Diet: Low-sodium Discharge Data Primary Care Provider: Salma Live Attending Provider: Gabby Ellis VTE Deep Vein Thrombosis/Pulmonary Embolism Present on Admission: No
== END 2021-10-17 11:50 | disposition home or self-care (01) ==
LOC: ED 18:37 → AC 20:43
PROVIDERS: Admitting Provider Nurse Practitioner Family; Emergency Provider Emergency Medicine; PCP Physician Assistant; Referring Provider Emergency Medicine; Visit Provider Nurse Practitioner Family
DX: I50.21 Acute systolic (congestive) heart failure (principal); I11.0 Hypertensive heart disease with heart failure; I48.20 Chronic atrial fibrillation, unspecified; J45.909 Unspecified asthma, uncomplicated; Z79.01 Long term (current) use of anticoagulants; Z20.822 Contact with and (suspected) exposure to COVID-19
CPT/HCPCS: 36415; 70450; 71046; 80048; 80053; 80076; 83605; 83735; 83880; 84145; 84484; 85025; 85610; 87633; 93005; 93010; 93307; 94640; 94760; 94762; 96374; 99284; 99285; G0378; J1940; J7613

== ENCOUNTER → 2022-03-03 09:53 | Outpatient (CLI) | payer MEDICARE, SELFPAY ==
[2022-03-03 19:55] LABS: Add Manual Diff / Slide Review NO; Alanine Aminotransferase 19 IU/L (<35); Albumin 4.4 g/dL (3.5-5.0); Albumin Globulin Ratio 1.7 (1.0-2.8); Alkaline Phosphatase 82 U/L (38-126); Aspartate Aminotransferase 30 IU/L (14-36); Basophils Absolute Auto 0 /uL (0-100); Basophils Percent Auto 0.6 % (0-2); Bilirubin Total 1.3 mg/dL (0.2-1.3); Blood Urea Nitrogen 20 mg/dL (7-17); Calcium 9.4 mg/dL (8.4-10.2); Carbon Dioxide 26 mmol/L (22-32); Chloride 107 mmol/L (98-107); Eosinophils Absolute Auto 100 /uL (0-450); Estimated Glomerular Filt Rate > 60 mL/min (>60); Globulin 2.6 g/dL (1.7-4.1); Glucose 112 mg/dL (80-110); HEMOLYSIS < 15 (0-50); Hematocrit 33.2 % (36-46); Hemoglobin 11.4 g/dL (12.0-16.0); Lymphocytes Absolute Auto 500 /uL (1100-4500); Lymphocytes Percent Auto 8.7 % (25-40); Mean Corpuscular HGB Conc 34.3 % (30-36); Mean Corpuscular Hemoglobin 34.9 PG (26-34); Mean Corpuscular Volume 101.7 fL (80-100); Monocytes Absolute Auto 600 /uL (0-900); Monocytes Percent Auto 9.2 % (3-14); Neutrophils Absolute Auto 4900 /uL (1500-7000); Neutrophils Percent Auto 80.5 % (50-75); Platelet Count 189 X10^3/uL (150-400); Potassium 4.5 mmol/L (3.4-5.1); Red Blood Cell Count 3.26 X10^6/uL (4.0-5.2); Red Cell Distribution Width 15.3 % (11.6-14.8); Sodium 141 mmol/L (137-145); Uric Acid 7.2 mg/dL (2.5-6.2); White Blood Cell Count 6.1 X10^3/uL (4.5-11.0)
[2022-03-03 20:03] LABS: NT-proBNP (BNP-Adult 18+) 1820 pg/mL (<450)
[2022-03-03 20:25] LABS: TSH w/ Reflex to FT4 1.76 uIU/mL (0.47-4.68)
[2022-03-03 20:44] LABS: Vitamin B12 693 pg/mL (239-931)
== END ==
PROVIDERS: PCP Physician Assistant; Visit Provider Family Medicine
DX: D75.89 Other specified diseases of blood and blood-forming organs (principal); I11.0 Hypertensive heart disease with heart failure; I50.22 Chronic systolic (congestive) heart failure; I48.20 Chronic atrial fibrillation, unspecified; M25.549 Pain in joints of unspecified hand; N18.30 Chronic kidney disease, stage 3 unspecified; R17 Unspecified jaundice; Z87.09 Personal history of other diseases of the respiratory system; R79.89 Other specified abnormal findings of blood chemistry
CPT/HCPCS: 80053; 82607; 83880; 84443; 84550; 85025

== ENCOUNTER → 2022-04-07 08:51 | Outpatient (CLI) | payer MEDICARE, SELFPAY ==
[2022-04-07 20:45] LABS: HEMOLYSIS < 15 (0-50); Iron 85 ug/dL (37-170)
[2022-04-07 21:00] LABS: Percent Iron Saturation 26 % (15-50); Total Iron Binding Capacity 325 ug/dL (265-497); Transferrin 244 mg/dL (206-381)
[2022-04-08 04:38] LABS: Uric Acid 3.6 mg/dL (2.5-6.2)
[2022-04-08 05:29] LABS: Vitamin B12 578 pg/mL (239-931)
== END ==
PROVIDERS: PCP Family Medicine; Visit Provider Family Medicine
DX: D64.9 Anemia, unspecified (principal); I10 Essential (primary) hypertension; I48.20 Chronic atrial fibrillation, unspecified; I50.22 Chronic systolic (congestive) heart failure; M10.041 Idiopathic gout, right hand; R73.9 Hyperglycemia, unspecified
CPT/HCPCS: 82607; 83540; 83550; 84550

== ENCOUNTER → 2022-04-15 13:22 | Outpatient (CLI) | payer MEDICARE, SELFPAY ==
[2022-04-19 12:16] LABS: Fecal Immunochemical Test Positive (Negative)
== END ==
PROVIDERS: PCP Family Medicine; Visit Provider Family Medicine
DX: D64.9 Anemia, unspecified (principal); I11.0 Hypertensive heart disease with heart failure; I50.22 Chronic systolic (congestive) heart failure; I48.20 Chronic atrial fibrillation, unspecified; M10.041 Idiopathic gout, right hand; R73.9 Hyperglycemia, unspecified
CPT/HCPCS: 82274

== ENCOUNTER → 2023-01-24 13:08 | Outpatient (CLI) | payer MEDICARE, SELFPAY ==
[2023-01-24 20:17] LABS: Add Manual Diff / Slide Review NO; Basophils Absolute Auto 100 /uL (0-100); Basophils Percent Auto 0.8 % (0-2); Eosinophils Absolute Auto 100 /uL (0-450); Eosinophils Percent Auto 0.9 % (2-4); Hematocrit 36.9 % (36-46); Hemoglobin 12.3 g/dL (12.0-16.0); Lymphocytes Absolute Auto 1000 /uL (1100-4500); Lymphocytes Percent Auto 9.6 % (25-40); Mean Corpuscular HGB Conc 33.3 % (30-36); Mean Corpuscular Hemoglobin 34.4 PG (26-34); Mean Corpuscular Volume 103.3 fL (80-100); Monocytes Absolute Auto 1000 /uL (0-900); Monocytes Percent Auto 9.5 % (3-14); Neutrophils Absolute Auto 8100 /uL (1500-7000); Neutrophils Percent Auto 79.2 % (50-75); Platelet Count 261 X10^3/uL (150-400); Red Blood Cell Count 3.57 X10^6/uL (4.0-5.2); Red Cell Distribution Width 15.3 % (11.6-14.8); White Blood Cell Count 10.2 X10^3/uL (4.5-11.0)
[2023-01-24 20:23] LABS: Alanine Aminotransferase 94 IU/L (<35); Albumin 4.4 g/dL (3.5-5.0); Albumin Globulin Ratio 1.5 (1.0-2.8); Alkaline Phosphatase 112 U/L (38-126); Aspartate Aminotransferase 59 IU/L (14-36); BUN Creatinine Ratio 24.6 (6-22); Bilirubin Total 1.1 mg/dL (0.2-1.3); Bilirubin Unconjugated 0.6 mg/dL (0.0-1.1); Blood Urea Nitrogen 57 mg/dL (7-17); Calcium 9.8 mg/dL (8.4-10.2); Carbon Dioxide 27 mmol/L (22-32); Chloride 98 mmol/L (98-107); Estimated Glomerular Filt Rate 20 mL/min (>60); Globulin 2.9 g/dL (1.7-4.1); Glucose 126 mg/dL (80-110); HEMOLYSIS < 15 (0-50); Potassium 4.5 mmol/L (3.4-5.1); Sodium 139 mmol/L (137-145); Total Protein 7.3 g/dL (6.3-8.2)
[2023-01-24 20:26] LABS: HEMOLYSIS < 15 (0-50); Iron 133 ug/dL (37-170)
[2023-01-24 20:30] LABS: NT-proBNP (BNP-Adult 18+) 2280 pg/mL (<450)
[2023-01-24 20:36] LABS: Percent Iron Saturation 48 % (15-50); Total Iron Binding Capacity 275 ug/dL (265-497); Transferrin 228 mg/dL (206-381)
[2023-01-24 20:57] LABS: TSH w/ Reflex to FT4 3.13 uIU/mL (0.47-4.68)
[2023-01-24 21:11] LABS: Vitamin B12 917 pg/mL (239-931)
[2023-01-27 15:58] LABS: Albumin 4.1 g/dL (2.9-4.4); Alpha-1-Globulin 0.3 g/dL (0.0-0.4); Alpha-2-Globulin 0.9 g/dL (0.4-1.0); Gamma Globulin 0.9 g/dL (0.4-1.8); Protein, Total 7.1 g/dL (6.0-8.5)
== END ==
PROVIDERS: PCP Family Medicine; Visit Provider Family Medicine
DX: D64.9 Anemia, unspecified (principal); I10 Essential (primary) hypertension; I48.20 Chronic atrial fibrillation, unspecified; I50.9 Heart failure, unspecified; M10.9 Gout, unspecified; R06.02 Shortness of breath; R19.5 Other fecal abnormalities; R63.5 Abnormal weight gain; R73.9 Hyperglycemia, unspecified
CPT/HCPCS: 80048; 80076; 82607; 83540; 83550; 83880; 84155; 84165; 84443; 85025

== ENCOUNTER → 2023-02-10 11:20 | Outpatient (CLI) | payer MEDICARE, SELFPAY ==
[2023-02-10 20:14] LABS: Add Manual Diff / Slide Review NO; Basophils Absolute Auto 100 /uL (0-100); Basophils Percent Auto 0.7 % (0-2); Eosinophils Absolute Auto 0 /uL (0-450); Eosinophils Percent Auto 0.2 % (2-4); Hematocrit 36.4 % (36-46); Hemoglobin 12.2 g/dL (12.0-16.0); Lymphocytes Absolute Auto 800 /uL (1100-4500); Lymphocytes Percent Auto 9.7 % (25-40); Mean Corpuscular HGB Conc 33.4 % (30-36); Mean Corpuscular Hemoglobin 34.7 PG (26-34); Mean Corpuscular Volume 103.9 fL (80-100); Monocytes Absolute Auto 700 /uL (0-900); Neutrophils Absolute Auto 6700 /uL (1500-7000); Neutrophils Percent Auto 81.4 % (50-75); Platelet Count 215 X10^3/uL (150-400); Red Blood Cell Count 3.51 X10^6/uL (4.0-5.2); Red Cell Distribution Width 15.5 % (11.6-14.8); White Blood Cell Count 8.3 X10^3/uL (4.5-11.0)
[2023-02-10 20:18] LABS: Alanine Aminotransferase 48 IU/L (<35); Albumin 4.1 g/dL (3.5-5.0); Albumin Globulin Ratio 1.6 (1.0-2.8); Alkaline Phosphatase 83 U/L (38-126); Aspartate Aminotransferase 40 IU/L (14-36); BUN Creatinine Ratio 19.6 (6-22); Bilirubin Total 0.7 mg/dL (0.2-1.3); Bilirubin Unconjugated 0.4 mg/dL (0.0-1.1); Blood Urea Nitrogen 64 mg/dL (7-17); Calcium 9.8 mg/dL (8.4-10.2); Carbon Dioxide 20 mmol/L (22-32); Chloride 102 mmol/L (98-107); Cholesterol 116 mg/dL (140-199); Estimated Glomerular Filt Rate 13 mL/min (>60); Globulin 2.5 g/dL (1.7-4.1); Glucose 191 mg/dL (80-110); HDL Cholesterol 64 mg/dL (40-60); HEMOLYSIS < 15 (0-50); LDL Cholesterol Calculated 30 mg/dL (<100); Potassium 4.5 mmol/L (3.4-5.1); Sodium 136 mmol/L (137-145); Total Protein 6.6 g/dL (6.3-8.2); Triglycerides 112 mg/dL (35-150)
[2023-02-10 20:27] LABS: NT-proBNP (BNP-Adult 18+) 1770 pg/mL (<450)
[2023-02-12 00:30] LABS: x Labcorp Estim. Avg Glu (eAG) 140 mg/dL (.); x Labcorp Hemoglobin A1c 6.5 % (4.8-5.6)
== END ==
PROVIDERS: PCP Family Medicine; Visit Provider Family Medicine
DX: I50.22 Chronic systolic (congestive) heart failure (principal); R73.9 Hyperglycemia, unspecified; I10 Essential (primary) hypertension; R06.02 Shortness of breath; D64.9 Anemia, unspecified; E78.2 Mixed hyperlipidemia; I50.9 Heart failure, unspecified; I95.9 Hypotension, unspecified; R19.5 Other fecal abnormalities
CPT/HCPCS: 80048; 80061; 80076; 83036; 83880; 85025

== ENCOUNTER → 2023-02-17 11:31 | Outpatient (CLI) | payer MEDICARE, SELFPAY ==
[2023-02-17 19:35] LABS: BUN Creatinine Ratio 20.7 (6-22); Blood Urea Nitrogen 36 mg/dL (7-17); Calcium 9.8 mg/dL (8.4-10.2); Carbon Dioxide 21 mmol/L (22-32); Chloride 104 mmol/L (98-107); Estimated Glomerular Filt Rate 29 mL/min (>60); Glucose 120 mg/dL (80-110); HEMOLYSIS < 15 (0-50); Potassium 4.9 mmol/L (3.4-5.1); Sodium 138 mmol/L (137-145)
== END ==
PROVIDERS: PCP Family Medicine; Visit Provider Family Medicine
DX: N17.9 Acute kidney failure, unspecified (principal)
CPT/HCPCS: 80048

== ENCOUNTER → 2023-03-15 11:51 | Outpatient (CLI) | payer MEDICARE, SELFPAY ==
[2023-03-15 19:59] LABS: BUN Creatinine Ratio 19.9 (6-22); Blood Urea Nitrogen 31 mg/dL (7-17); Calcium 9.9 mg/dL (8.4-10.2); Carbon Dioxide 18 mmol/L (22-32); Chloride 107 mmol/L (98-107); Estimated Glomerular Filt Rate 33 mL/min (>60); Glucose 106 mg/dL (80-110); HEMOLYSIS 18 (0-50); Sodium 137 mmol/L (137-145)
[2023-03-15 20:00] LABS: Potassium 5.5 mmol/L (3.4-5.1)
[2023-03-17 00:13] LABS: x Labcorp Estim. Avg Glu (eAG) 131 mg/dL (.); x Labcorp Hemoglobin A1c 6.2 % (4.8-5.6)
== END ==
PROVIDERS: PCP Family Medicine; Visit Provider Family Medicine
DX: N17.9 Acute kidney failure, unspecified (principal); R73.9 Hyperglycemia, unspecified
CPT/HCPCS: 80048; 83036

== ENCOUNTER → 2023-05-12 10:55 | Outpatient (CLI) | payer MEDICARE, SELFPAY ==
[2023-05-12 20:27] LABS: BUN Creatinine Ratio 18.7 (6-22); Blood Urea Nitrogen 23 mg/dL (7-17); Calcium 9.6 mg/dL (8.4-10.2); Carbon Dioxide 23 mmol/L (22-32); Chloride 105 mmol/L (98-107); Estimated Glomerular Filt Rate 43 mL/min (>60); Glucose 105 mg/dL (80-110); HEMOLYSIS < 15 (0-50); Potassium 4.6 mmol/L (3.4-5.1); Sodium 138 mmol/L (137-145)
== END ==
PROVIDERS: PCP Family Medicine; Visit Provider Family Medicine
DX: N17.9 Acute kidney failure, unspecified (principal)
CPT/HCPCS: 80048

== ENCOUNTER → 2023-06-16 11:37 | Outpatient (CLI) | payer MEDICARE, SELFPAY ==
[2023-06-16 19:33] LABS: Hemoglobin A1C% w Est Avg Glu 5.6 % (4.0-6.0)
[2023-06-16 19:45] LABS: BUN Creatinine Ratio 19.5 (6-22); Blood Urea Nitrogen 25 mg/dL (7-17); Calcium 9.9 mg/dL (8.4-10.2); Carbon Dioxide 23 mmol/L (22-32); Chloride 104 mmol/L (98-107); Estimated Glomerular Filt Rate 41 mL/min (>60); Glucose 125 mg/dL (80-110); HEMOLYSIS < 15 (0-50); Potassium 5.2 mmol/L (3.4-5.1); Sodium 139 mmol/L (137-145)
== END ==
PROVIDERS: PCP Family Medicine; Visit Provider Family Medicine
DX: R73.9 Hyperglycemia, unspecified (principal); R73.03 Prediabetes; E87.5 Hyperkalemia; N17.9 Acute kidney failure, unspecified; I95.9 Hypotension, unspecified
CPT/HCPCS: 80048; 83036

== ENCOUNTER → 2023-08-16 13:09 | Outpatient (CLI) | payer MEDICARE, SELFPAY ==
[2023-08-16 19:09] LABS: BUN Creatinine Ratio 24.8 (6-22); Blood Urea Nitrogen 28 mg/dL (7-17); Carbon Dioxide 24 mmol/L (22-32); Chloride 103 mmol/L (98-107); Estimated Glomerular Filt Rate 48 mL/min (>60); Glucose 126 mg/dL (80-110); HEMOLYSIS < 15 (0-50); Potassium 4.5 mmol/L (3.4-5.1); Sodium 139 mmol/L (137-145)
== END ==
PROVIDERS: PCP Family Medicine; Visit Provider Family Medicine
DX: E10.22 Type 1 diabetes mellitus with diabetic chronic kidney disease (principal); N18.30 Chronic kidney disease, stage 3 unspecified; N17.9 Acute kidney failure, unspecified
CPT/HCPCS: 80048

== ENCOUNTER → 2024-01-10 13:29 | Outpatient (CLI) | payer MEDICARE, SELFPAY ==
[2024-01-10 21:22] LABS: Add Manual Diff / Slide Review NO; Basophils Absolute Auto 100 /uL (0-100); Eosinophils Absolute Auto 100 /uL (0-450); Eosinophils Percent Auto 0.6 % (2-4); Hematocrit 36.8 % (36-46); Hemoglobin 12.3 g/dL (12.0-16.0); Lymphocytes Absolute Auto 900 /uL (1100-4500); Lymphocytes Percent Auto 10.2 % (25-40); Mean Corpuscular HGB Conc 33.3 % (30-36); Mean Corpuscular Hemoglobin 34.3 PG (26-34); Mean Corpuscular Volume 103.1 fL (80-100); Monocytes Absolute Auto 900 /uL (0-900); Monocytes Percent Auto 9.5 % (3-14); Neutrophils Absolute Auto 7200 /uL (1500-7000); Neutrophils Percent Auto 78.7 % (50-75); Platelet Count 301 X10^3/uL (150-400); Red Blood Cell Count 3.57 X10^6/uL (4.0-5.2); Red Cell Distribution Width 14.7 % (11.6-14.8); White Blood Cell Count 9.2 X10^3/uL (4.5-11.0)
[2024-01-10 21:53] LABS: BUN Creatinine Ratio 19.8 (6-22); Blood Urea Nitrogen 22 mg/dL (7-17); Calcium 9.4 mg/dL (8.4-10.2); Carbon Dioxide 22 mmol/L (22-32); Chloride 109 mmol/L (98-107); Cholesterol 167 mg/dL (140-199); Estimated Glomerular Filt Rate 49 mL/min (>60); Glucose 129 mg/dL (80-110); HDL Cholesterol 60 mg/dL (40-60); HEMOLYSIS < 15 (0-50); LDL Cholesterol Calculated 90 mg/dL (<100); Potassium 4.5 mmol/L (3.4-5.1); Sodium 138 mmol/L (137-145); Triglycerides 85 mg/dL (35-150)
[2024-01-10 22:14] LABS: Hemoglobin A1C% w Est Avg Glu 5.7 % (4.0-6.0)
== END ==
PROVIDERS: PCP Family Medicine; Visit Provider Family Medicine
DX: R73.03 Prediabetes (principal); E78.2 Mixed hyperlipidemia; E87.5 Hyperkalemia; N17.9 Acute kidney failure, unspecified; I50.9 Heart failure, unspecified; R73.9 Hyperglycemia, unspecified; D64.9 Anemia, unspecified; I10 Essential (primary) hypertension
CPT/HCPCS: 80048; 80061; 83036; 85025

== ENCOUNTER → 2024-06-05 08:54 | Outpatient (CLI) | payer MEDICARE, SELFPAY ==
[2024-06-05 20:24] LABS: Add Manual Diff / Slide Review NO; Basophils Absolute Auto 100 /uL (0-100); Basophils Percent Auto 0.8 % (0-2); Eosinophils Absolute Auto 100 /uL (0-450); Eosinophils Percent Auto 0.6 % (2-4); Hematocrit 41.4 % (36-46); Hemoglobin 13.8 g/dL (12.0-16.0); Lymphocytes Absolute Auto 800 /uL (1100-4500); Lymphocytes Percent Auto 8.6 % (25-40); Mean Corpuscular HGB Conc 33.4 % (30-36); Mean Corpuscular Hemoglobin 33.7 PG (26-34); Mean Corpuscular Volume 100.7 fL (80-100); Monocytes Absolute Auto 800 /uL (0-900); Neutrophils Absolute Auto 7500 /uL (1500-7000); Platelet Count 252 X10^3/uL (150-400); Red Blood Cell Count 4.11 X10^6/uL (4.0-5.2); Red Cell Distribution Width 14.4 % (11.6-14.8); White Blood Cell Count 9.3 X10^3/uL (4.5-11.0)
[2024-06-05 20:33] LABS: BUN Creatinine Ratio 22.5 (6-22); Blood Urea Nitrogen 41 mg/dL (7-17); Calcium 9.9 mg/dL (8.4-10.2); Carbon Dioxide 35 mmol/L (22-32); Chloride 94 mmol/L (98-107); Estimated Glomerular Filt Rate 27 mL/min (>60); Glucose 109 mg/dL (80-110); HEMOLYSIS < 15 (0-50); Potassium 3.8 mmol/L (3.4-5.1); Sodium 139 mmol/L (137-145)
[2024-06-05 20:35] LABS: NT-proBNP (BNP-Adult 18+) 1650 pg/mL (<450)
== END ==
PROVIDERS: PCP Family Medicine; Visit Provider Family Medicine
DX: J90 Pleural effusion, not elsewhere classified (principal); I50.9 Heart failure, unspecified; D64.9 Anemia, unspecified
CPT/HCPCS: 80048; 83880; 85025

== ENCOUNTER → 2024-06-25 12:23 | Outpatient (CLI) | payer MEDICARE, SELFPAY ==
[2024-06-25 18:56] LABS: NT-proBNP (BNP-Adult 18+) 1750 pg/mL (<450)
== END ==
PROVIDERS: PCP Family Medicine; Visit Provider Family Medicine
DX: R06.02 Shortness of breath (principal)
CPT/HCPCS: 83880

== ENCOUNTER → 2024-07-16 10:59 | Outpatient (CLI) | payer MEDICARE, SELFPAY ==
[2024-07-16 19:51] LABS: BUN Creatinine Ratio 18.7 (6-22); Blood Urea Nitrogen 25 mg/dL (7-17); Calcium 9.9 mg/dL (8.4-10.2); Carbon Dioxide 24 mmol/L (22-32); Chloride 105 mmol/L (98-107); Cholesterol 190 mg/dL (140-199); Estimated Glomerular Filt Rate 39 mL/min (>60); Glucose 101 mg/dL (80-110); HDL Cholesterol 70 mg/dL (40-60); HEMOLYSIS < 15 (0-50); LDL Cholesterol Calculated 97 mg/dL (<100); Potassium 4.6 mmol/L (3.4-5.1); Sodium 137 mmol/L (137-145); Triglycerides 114 mg/dL (35-150)
[2024-07-16 19:55] LABS: NT-proBNP (BNP-Adult 18+) 2580 pg/mL (<450)
== END ==
PROVIDERS: PCP Family Medicine; Visit Provider Family Medicine
DX: E78.2 Mixed hyperlipidemia (principal); R06.02 Shortness of breath; J90 Pleural effusion, not elsewhere classified; E87.6 Hypokalemia; N17.9 Acute kidney failure, unspecified; I50.9 Heart failure, unspecified; I48.20 Chronic atrial fibrillation, unspecified; I11.0 Hypertensive heart disease with heart failure
CPT/HCPCS: 80048; 80061; 83880

== ENCOUNTER → 2024-09-05 10:49 | Outpatient (CLI) | payer MEDICARE, SELFPAY ==
[2024-09-05 19:41] LABS: Add Manual Diff / Slide Review NO; Basophils Absolute Auto 0 /uL (0-100); Basophils Percent Auto 0.4 % (0-2); Eosinophils Absolute Auto 100 /uL (0-450); Eosinophils Percent Auto 1.2 % (2-4); Hematocrit 38.9 % (36-46); Hemoglobin 12.8 g/dL (12.0-16.0); Lymphocytes Absolute Auto 800 /uL (1100-4500); Lymphocytes Percent Auto 10.5 % (25-40); Mean Corpuscular Hemoglobin 34.1 PG (26-34); Mean Corpuscular Volume 103.3 fL (80-100); Monocytes Absolute Auto 700 /uL (0-900); Monocytes Percent Auto 9.4 % (3-14); Neutrophils Absolute Auto 6200 /uL (1500-7000); Neutrophils Percent Auto 78.5 % (50-75); Platelet Count 221 X10^3/uL (150-400); Red Blood Cell Count 3.77 X10^6/uL (4.0-5.2); White Blood Cell Count 7.9 X10^3/uL (4.5-11.0)
[2024-09-05 19:58] LABS: BUN Creatinine Ratio 21.8 (6-22); Blood Urea Nitrogen 27 mg/dL (7-17); Calcium 9.4 mg/dL (8.4-10.2); Carbon Dioxide 25 mmol/L (22-32); Chloride 107 mmol/L (98-107); Estimated Glomerular Filt Rate 42 mL/min (>60); Glucose 102 mg/dL (80-110); HEMOLYSIS 23 (0-50); Potassium 4.1 mmol/L (3.4-5.1); Sodium 138 mmol/L (137-145)
== END ==
PROVIDERS: PCP Family Medicine; Visit Provider Family Medicine
DX: J90 Pleural effusion, not elsewhere classified (principal); E87.6 Hypokalemia; N17.9 Acute kidney failure, unspecified; D64.9 Anemia, unspecified
CPT/HCPCS: 80048; 85025

== ENCOUNTER → 2024-09-27 15:10 | Outpatient (CLI) | payer MEDICARE, SELFPAY | PROVIDERS: PCP Family Medicine; Visit Provider Physician Assistant Medical | DX: T14.8XXA Other injury of unspecified body region, initial encounter (principal) | CPT/HCPCS: 87070; 87205 ==

== ENCOUNTER → 2024-10-02 10:22 | Outpatient (CLI) | payer MEDICARE, SELFPAY | PROVIDERS: PCP Family Medicine; Visit Provider Physician Assistant Medical | DX: T14.8XXA Other injury of unspecified body region, initial encounter (principal) | CPT/HCPCS: 87070; 87075; 87205 ==

== ENCOUNTER → 2024-10-08 11:22 | Outpatient (CLI) | payer MEDICARE, SELFPAY ==
[2024-10-08 19:28] LABS: BUN Creatinine Ratio 25.8 (6-22); Blood Urea Nitrogen 32 mg/dL (7-17); Calcium 9.8 mg/dL (8.4-10.2); Carbon Dioxide 23 mmol/L (22-32); Chloride 107 mmol/L (98-107); Estimated Glomerular Filt Rate 42 mL/min (>60); Glucose 117 mg/dL (80-110); HEMOLYSIS 26 (0-50); Potassium 4.4 mmol/L (3.4-5.1); Sodium 137 mmol/L (137-145)
== END ==
PROVIDERS: PCP Family Medicine; Visit Provider Family Medicine
DX: N17.9 Acute kidney failure, unspecified (principal); E87.6 Hypokalemia
CPT/HCPCS: 80048

== ENCOUNTER → 2024-12-17 16:18 | Outpatient (CLI) | payer MEDICARE, SELFPAY | PROVIDERS: PCP Family Medicine; Visit Provider Family Medicine | DX: R39.89 Other symptoms and signs involving the genitourinary system (principal) | CPT/HCPCS: 87086 ==

== ENCOUNTER → 2024-12-18 11:45 | Outpatient (CLI) | payer MEDICARE, SELFPAY ==
[2024-12-18 19:28] LABS: Add Manual Diff / Slide Review NO; Basophils Absolute Auto 100 /uL (0-100); Basophils Percent Auto 1.2 % (0-2); Eosinophils Absolute Auto 100 /uL (0-450); Eosinophils Percent Auto 0.8 % (2-4); Hematocrit 36.8 % (36-46); Lymphocytes Absolute Auto 700 /uL (1100-4500); Lymphocytes Percent Auto 7.2 % (25-40); Mean Corpuscular HGB Conc 32.7 % (30-36); Mean Corpuscular Volume 100.8 fL (80-100); Monocytes Absolute Auto 700 /uL (0-900); Monocytes Percent Auto 7.9 % (3-14); Neutrophils Absolute Auto 7700 /uL (1500-7000); Neutrophils Percent Auto 82.9 % (50-75); Platelet Count 289 X10^3/uL (150-400); Red Blood Cell Count 3.65 X10^6/uL (4.0-5.2); Red Cell Distribution Width 14.2 % (11.6-14.8); White Blood Cell Count 9.3 X10^3/uL (4.5-11.0)
[2024-12-18 19:31] LABS: Alanine Aminotransferase 19 IU/L (<35); Albumin 4.2 g/dL (3.5-5.0); Albumin Globulin Ratio 1.6 (1.0-2.8); Alkaline Phosphatase 83 U/L (38-126); Aspartate Aminotransferase 29 IU/L (14-36); BUN Creatinine Ratio 20.5 (6-22); Bilirubin Total 1.7 mg/dL (0.2-1.3); Blood Urea Nitrogen 25 mg/dL (7-17); Calcium 9.9 mg/dL (8.4-10.2); Carbon Dioxide 24 mmol/L (22-32); Chloride 104 mmol/L (98-107); Estimated Glomerular Filt Rate 43 mL/min (>60); Globulin 2.7 g/dL (1.7-4.1); Glucose 109 mg/dL (80-110); HEMOLYSIS < 15 (0-50); Potassium 4.7 mmol/L (3.4-5.1); Sodium 140 mmol/L (137-145); Total Protein 6.9 g/dL (6.3-8.2)
[2024-12-18 19:40] LABS: NT-proBNP (BNP-Adult 18+) 3780 pg/mL (<450)
[2024-12-18 20:21] LABS: Vitamin B12 551 pg/mL (239-931)
== END ==
PROVIDERS: PCP Family Medicine; Visit Provider Family Medicine
DX: I50.9 Heart failure, unspecified (principal); N17.9 Acute kidney failure, unspecified; R39.89 Other symptoms and signs involving the genitourinary system; R73.03 Prediabetes; R41.3 Other amnesia
CPT/HCPCS: 80053; 82607; 83880; 85025